=== PATIENT | female | born 1975 | race American Indian/Alaskan Native ===

== ENCOUNTER 2016-08-26 19:12 | Emergency (ER) | payer OTHER ==
[2016-08-26 19:12] VITALS: BMI 34.4
[2016-08-26 19:22] VITALS: BP 139/93; PULSE 90; RESP 16; TEMP 98.1; O2SAT 100
--- NOTE | 2016-08-26 20:38 | ED PDOC ---
HPI: CCC, URI, Sore Throat Time Seen by Provider: 08/26/16 19:41 Chief Complaint (Nursing): ENT Problem Chief Complaint (Provider): ENT Problem History Per: Patient History/Exam Limitations: no limitations Onset/Duration Of Symptoms: Days (x1) Current Symptoms Are (Timing): Still Present Additional Complaint(s): Hieu Llanos is a 41 year old female that presents to the ED with a chief complaint of a sore throat and congestion since yesterday. Patient states that she has been taking OTC medication, the last dose of which she took about 5 hours ago, but that her symptoms have not resolved. Past Medical History Reviewed: Historical Data, Nursing Documentation, Vital Signs Vital Signs: Last Vital Signs Temp 98.1 F 08/26/16 19:20 Pulse 90 08/26/16 19:20 Resp 16 08/26/16 19:20 BP 139/93 H 08/26/16 19:20 Pulse Ox 100 08/26/16 20:46 - Medical History PMH: Bronchitis, Migraine - Family History Family History: States: Unknown Family Hx - Immunization History Hx Tetanus Toxoid Vaccination: No Hx Influenza Vaccination: No Hx Pneumococcal Vaccination: No - Home Medications Home Medications: Ambulatory Orders Medication Instructions Recorded Multimineral/Multivitamin 1 tab PO DAILY #0 tab 09/04/14 [Therapeutic-M Tab] Prednisone 50 mg PO DAILY #2 tablet 08/26/16 - Allergies Allergies/Adverse Reactions: Allergies Allergy/AdvReac Type Severity Reaction Status Date / Time No Known Allergies Allergy Verified 09/02/14 11:43 Review of Systems ENT: Positive for: Nose Congestion, Throat Pain (sore throat) Physical Exam - Reviewed Nursing Documentation Reviewed: Yes Vital Signs Reviewed: Yes - Physical Exam Appears: Positive for: Non-toxic, No Acute Distress Head Exam: Positive for: ATRAUMATIC, NORMOCEPHALIC Skin: Positive for: Normal Color ENT: Positive for: Normal ENT Inspection. Negative for: Nasal Congestion Cardiovascular/Chest: Positive for: Regular Rate, Rhythm. Negative for: Murmur Respiratory: Positive for: Normal Breath Sounds. Negative for: Wheezing Neurologic/Psych: Positive for: Alert, Oriented - ECG O2 Sat by Pulse Oximetry: 100 (RA) Pulse Ox Interpretation: Normal Medical Decision Making Medical Decision Making: Impression: Pharyngitis Plan: * Throat Culture * Reevaluation 20:37 Patient given prescription for Prednisone and advised to follow up at the clinic. Patient stable for discharge home. Scribe Attestation: Documented by January Gupta, acting as a scribe for Selam Alvarenga PA-C. Provider Scribe Attestation: All medical record entries made by the Scribe were at my direction and personally dictated by me. I have reviewed the chart and agree that the record accurately reflects my personal performance of the history, physical exam, medical decision making, and the department course for this patient. I have also personally directed, reviewed, and agree with the discharge instructions and disposition. Disposition - Clinical Impression Clinical Impression: Viral pharyngitis - Patient ED Disposition Is Patient to be Admitted: No Counseled Patient/Family Regarding: Diagnosis, Need For Followup, Rx Given - Disposition Referrals: [facility] [Outside] Disposition: Routine/Home Disposition Time: 20:37 Condition: GOOD Prescriptions: Prednisone 50 mg PO DAILY #2 tablet Instructions: Pharyngitis (ED)
== END 2016-08-26 21:01 | disposition home or self-care (01) ==
LOC: H.ER 19:12
DX: J02.8 Acute pharyngitis due to other specified organisms (principal)

== ENCOUNTER 2016-10-21 09:07 | Emergency (ER) | payer OTHER ==
[2016-10-21 09:07] VITALS: BMI 34.4
[2016-10-21 09:15] VITALS: BP 133/81; PULSE 81; RESP 17; TEMP 98.7; O2SAT 100
--- NOTE | 2016-10-21 09:45 | ED PDOC ---
HPI: Skin/Bite Injury Time Seen by Provider: 10/21/16 09:12 Chief Complaint (Nursing): Abnormal Skin Integrity Chief Complaint (Provider): Painful Bumps about Body History Per: Patient History/Exam Limitations: no limitations Current Symptoms Are (Timing): Still Present Quality Of Symptoms: Painful Additional Complaint(s): Hieu Llanos, a 41 year old female presenting with bumps about her body. The patient states that she was staying at a hotel at [facility] a few weeks ago, and after she began to notice the bumps. Patient states that 2 of the bumps are painful. She reports that she has not taken anything for pain. Past Medical History Reviewed: Historical Data, Nursing Documentation, Vital Signs Vital Signs: Last Vital Signs Temp 98.7 F 10/21/16 09:14 Pulse 81 10/21/16 09:14 Resp 17 10/21/16 09:14 BP 133/81 10/21/16 09:14 Pulse Ox 100 10/21/16 09:58 - Medical History PMH: Bronchitis, Migraine - Surgical History Surgical History: No Surg Hx - Family History Family History: States: Unknown Family Hx - Immunization History Hx Tetanus Toxoid Vaccination: No Hx Influenza Vaccination: No Hx Pneumococcal Vaccination: No - Home Medications Home Medications: Ambulatory Orders Medication Instructions Recorded Multimineral/Multivitamin 1 tab PO DAILY #0 tab 09/04/14 [Therapeutic-M Tab] Prednisone 50 mg PO DAILY #2 tablet 08/26/16 Bacitracin/Polymyxin B Sulfate 1 apful TP TID PRN #1 packet 10/21/16 [Polysporin Ointment] Naproxen [Naprosyn] 500 mg PO BID PRN #15 tablet 10/21/16 - Allergies Allergies/Adverse Reactions: Allergies Allergy/AdvReac Type Severity Reaction Status Date / Time No Known Allergies Allergy Verified 10/21/16 09:13 Review of Systems Skin: Positive for: Other (Bumps about body) Physical Exam - Reviewed Nursing Documentation Reviewed: Yes Vital Signs Reviewed: Yes - Physical Exam Appears: Positive for: Non-toxic, No Acute Distress Skin: Positive for: Normal Color (Right lateral breast 2cm area of erythema, edema and tenderness; no vesicles; 1 bump onleft arm and 2 on her buttocks.), Warm, Dry Neurologic/Psych: Positive for: Alert, Oriented - ECG O2 Sat by Pulse Oximetry: 100 (RA) Pulse Ox Interpretation: Normal Medical Decision Making Medical Decision Makin Initial Impression: 41 year old female presenting with bumps on her body Initial Plan: * Naprosyn Scribe Attestation Documented by Allison Mclaughlin acting as a scribe for Rosario Orellana MD. Provider Attestation All medical record entries made by the Scribe were at my direction and personally dictated by me. I have reviewed the chart and agree that the record accurately reflects my personal performance of the history, physical exam, medical decision making, and the department course for this patient. I have also personally directed, reviewed, and agree with the discharge instructions and disposition. Disposition - Clinical Impression Clinical Impression: Insect bite - Disposition Referrals: Gale Pickett MD [Family Provider] - Disposition: Routine/Home Disposition Time: 10:21 Condition: STABLE Prescriptions: Bacitracin/Polymyxin B Sulfate [Polysporin Ointment] 1 apful TP TID PRN #1 packet PRN Reason: Rash Naproxen [Naprosyn] 500 mg PO BID PRN #15 tablet PRN Reason: Pain, Moderate (4-7) Instructions: Insect Bite or Sting (ED) Forms: [employer] [facility] (Pashto)
--- NOTE | 2016-10-21 09:48 | ED PDOC ---
HPI: Skin/Bite Injury Time Seen by Provider: 10/21/16 09:12 Chief Complaint (Nursing): Abnormal Skin Integrity Past Medical History Vital Signs: Last Vital Signs Temp 98.7 F 10/21/16 09:14 Pulse 81 10/21/16 09:14 Resp 17 10/21/16 09:14 BP 133/81 10/21/16 09:14 Pulse Ox 100 10/21/16 09:14 - Medical History PMH: Bronchitis, Migraine - Family History Family History: States: Unknown Family Hx - Immunization History Hx Tetanus Toxoid Vaccination: No Hx Influenza Vaccination: No Hx Pneumococcal Vaccination: No - Home Medications Home Medications: Ambulatory Orders Medication Instructions Recorded Multimineral/Multivitamin 1 tab PO DAILY #0 tab 09/04/14 [Therapeutic-M Tab] Prednisone 50 mg PO DAILY #2 tablet 08/26/16 - Allergies Allergies/Adverse Reactions: Allergies Allergy/AdvReac Type Severity Reaction Status Date / Time No Known Allergies Allergy Verified 10/21/16 09:13 - ECG O2 Sat by Pulse Oximetry: 100 Disposition - Disposition Forms: [employer] ([employer])
[2016-10-21] MEDS ORDERED: Naproxen 500 MG TAB PO STA (10:23)
[2016-10-21] MEDS ORDERED: Naproxen 500 MG TAB PO ONE (10:26)
== END 2016-10-21 10:33 | disposition home or self-care (01) ==
LOC: H.ER 09:07
DX: T14.8 Other injury of unspecified body region (principal); W57.XXXA Bitten or stung by nonvenomous insect and other nonvenomous arthropods, initial encounter; Y93.9 Activity, unspecified

== ENCOUNTER 2017-10-28 20:56 | Emergency (ER) | payer SELFPAY ==
[2017-10-28 20:56] VITALS: BMI 34.4
[2017-10-28 21:18] VITALS: BP 124/76; PULSE 74; RESP 18; TEMP 99; O2SAT 100
--- NOTE | 2017-10-28 22:17 | ED PDOC ---
HPI: Female Pain Time Seen by Provider: 10/28/17 21:34 Chief Complaint (Nursing): Female Genitourinary Chief Complaint (Provider): dysuria, sore throat History Per: Patient Additional Complaint(s): 42-year-old female presents with dysuria 2 days and sore throat that started today. Patient has mild abdominal pain with no nausea or vomiting. She denies any vaginal discharge. Patient is tolerating liquids and solids. PMD: Clinic in [place], [place] Past Medical History Reviewed: Historical Data, Nursing Documentation, Vital Signs Vital Signs: Last Vital Signs Temp 99 F 10/28/17 21:16 Pulse 74 10/28/17 21:16 Resp 18 10/28/17 21:16 BP 124/76 10/28/17 21:16 Pulse Ox 100 10/28/17 21:16 - Medical History PMH: Bronchitis, Migraine - Family History Family History: States: No Known Family Hx - Living Arrangements Living Arrangements: With Family - Social History Current smoker - smoking cessation education provided: Yes Alcohol: None Drugs: Denies - Home Medications Home Medications: Ambulatory Orders Medication Instructions Recorded Multimineral/Multivitamin 1 tab PO DAILY #0 tab 09/04/14 [Therapeutic-M Tab] Prednisone 50 mg PO DAILY #2 tablet 08/26/16 Bacitracin/Polymyxin B Sulfate 1 apful TP TID PRN #1 packet 10/21/16 [Polysporin Ointment] Naproxen [Naprosyn] 500 mg PO BID PRN #15 tablet 10/21/16 Cephalexin [Keflex] 500 mg PO QID #28 capsule 10/28/17 Ibuprofen [Motrin] 600 mg PO Q6 PRN #20 tab 10/28/17 Phenazopyridine HCl [Pyridium] 200 mg PO TID PRN #9 tablet 10/28/17 - Allergies Allergies/Adverse Reactions: Allergies Allergy/AdvReac Type Severity Reaction Status Date / Time No Known Allergies Allergy Verified 10/21/16 09:13 Review of Systems ROS Statement: Except As Marked, All Systems Reviewed And Found Negative Constitutional: Negative for: Fever, Chills ENT: Positive for: Throat Pain Genitourinary Female: Positive for: Dysuria, Frequency, Incontinence. Negative for: Vaginal Discharge, Vaginal Bleeding Physical Exam - Reviewed Nursing Documentation Reviewed: Yes Vital Signs Reviewed: Yes - Physical Exam Appears: Positive for: Well, Non-toxic, No Acute Distress Skin: Positive for: Normal Color. Negative for: Rash Eye Exam: Positive for: Normal appearance Cardiovascular/Chest: Positive for: Regular Rate, Rhythm Respiratory: Positive for: Normal Breath Sounds. Negative for: Wheezing, Respiratory Distress Gastrointestinal/Abdominal: Positive for: Soft. Negative for: Tenderness, Distended, Guarding, Rebound Back: Positive for: Normal Inspection Extremity: Positive for: Normal ROM Neurologic/Psych: Positive for: Alert, Oriented - Laboratory Results Urine POC: Negative Urine dip results: Positive for: Leukocyte Esterase (large), Blood (large). Negative for: Nitrate, Ketones, Glucose, Bilirubin, Protein - ECG O2 Sat by Pulse Oximetry: 100 Pulse Ox Interpretation: Normal Medical Decision Making Medical Decision Makin42 y/o female with dysuria and sore throat Plan: test Urine dip Urine culture CHL/GC culture Throat culture UTI noted. Initial dose of Keflex given in ED along with Motrin and Pyridium. Patient given prescription for Keflex Motrin and Pyridium. Advised fluids, rest and PMD follow-up in 2-3 days. Disposition - Clinical Impression Clinical Impression: Urinary tract infection, Sore throat Counseled Patient/Family Regarding: Studies Performed, Diagnosis, Need For Followup, Rx Given - Disposition Referrals: [facility] [Outside] Disposition: Routine/Home Disposition Time: 22:18 Condition: STABLE Additional Instructions: Take prescription meds as directed. Drink plenty of fluids. Follow-up with primary doctor in 2-3 days or return any time if acutely worse. Prescriptions: Cephalexin [Keflex] 500 mg PO QID #28 capsule Ibuprofen [Motrin] 600 mg PO Q6 PRN #20 tab PRN Reason: Pain, Moderate (4-7) Phenazopyridine HCl [Pyridium] 200 mg PO TID PRN #9 tablet PRN Reason: Bladder Spasm Instructions: Sore Throat in Adults, Urinary Tract Infections in Adults
== END 2017-10-28 22:30 | disposition home or self-care (01) ==
LOC: H.ER 20:56
DX: N39.0 Urinary tract infection, site not specified (principal); J02.9 Acute pharyngitis, unspecified; F17.200 Nicotine dependence, unspecified, uncomplicated